=== PATIENT | male | born 1965 | race Caucasian/White ===

== ENCOUNTER 2019-09-21 09:20 | Day surgery (SDC) | payer BC ==
[2019-09-20 18:00] VITALS: BMI 32.3
--- NOTE | 2019-09-21 11:09 | HP ---
Admitting History and Physical - Admission Chief Complaint: Low back and right Leg pain History of Present Illness: Pt complains of low back and Leg Pain. History Source: Patient - Smoking History Smoking history: Current every day smoker Have you smoked in the past 12 months: Yes Aproximately how many cigarettes per day: 15 - Alcohol/Substance Use Hx Alcohol Use: Yes (rarely) Home Medications - Allergies Allergies/Adverse Reactions: Allergies Allergy/AdvReac Type Severity Reaction Status Date / Time No Known Allergies Allergy Verified 09/20/19 18:00 - Home Medications Home Medications: Ambulatory Orders Aspirin Coated [Ecotrin -] 81 mg PO DAILY 12/12/18 Losartan Potassium 100 mg PO DAILY 12/12/18 Rosuvastatin Calcium 5 mg PO DAILY 12/12/18 Physical Examination Vital Signs: Vital Signs Temperature 98.4 F 09/21/19 09:30 Pulse Rate 78 09/21/19 09:30 Respiratory Rate 12 09/21/19 09:30 Blood Pressure 156/94 09/21/19 09:30 O2 Sat by Pulse Oximetry (%) 98 09/21/19 09:30 Constitutional: Yes: Well Nourished, No Distress, Calm Eyes: Yes: Conjunctiva Clear HENT: Yes: Atraumatic, Normocephalic Neck: Yes: Trachea Midline Cardiovascular: Yes: Regular Rate and Rhythm Respiratory: Yes: Regular Neurological: Yes: Other (SLR Positive right) Assessment/Plan The patients low back and leg pain is likely secondary to right L3-L4 radiculopathy. 1. I will perform right L3 and L4 TFESI. 2. Follow up in 2 weeks.
[2019-09-21] MEDS ORDERED: LIDOCAINE HCL 1%, 10 MG/ML (20ML VIAL) ONE (12:26)
[2019-09-21] MEDS ORDERED: LIDOCAINE HCL 1%, 10 MG/ML (20ML VIAL) NR ONE (12:32)
[2019-09-21] MEDS ORDERED: IOHEXOL 180 MG/1 ML ML IJ ONE (12:33)
[2019-09-21] MEDS ORDERED: LIDOCAINE HCL 1% PRESERVATIVE FREE - 30ML VIAL IJ ONE (12:34)
[2019-09-21] MEDS ORDERED: DEXAMETHASONE SOD PHOSPHATE 10 MG/1 ML VIAL IVPUSH ONE (12:35)
[2019-09-21 14:08] VITALS: BP 150/87; PULSE 62; TEMP 98.5
--- NOTE | 2019-09-22 17:16 | PROC ---
Procedure Note Procedure: Date: 09/21/2019 : 1965 Age: 53 Year(s) Sex: Male Name of the patient: Faisal Schuster Preoperative Diagnosis: Low Back pain and Lumbar radiculopathy Postoperative Diagnosis: Same Procedure Performed: Lumbar Epidural steroid injection Transforaminal L4 and L5 on Right Anesthesia: Local Procedure: 5 After the risks and benefits were explained, informed consent was obtained. The patient was then taken to the procedure room and positioned prone on the procedure table. Time out was performed. The region overlying the Right L3 and L4 neural foramens were identified using fluoroscopy. The skin was prepped and draped in the usual sterile fashion. The skin and soft tissues were anesthetized using 1% lidocaine. The neural foramens were identified with the fluoroscopic beam directed in a right oblique direction. 2 22 gauge 3.5 inch spinal needles were then introduced into the appropriate neural foramens using intermittent fluoroscopic guidance using AP, oblique and lateral views as indicated. Needle placement was then confirmed with the injection of Omnipaque 180. Epidural flow was noted and the nerve root was outlined. No vascular uptake was noted. Next, a mixture 1.5 cc of dexamethasone and 1% lidociane followed by 0.5 cc of 1% lidocaine was then injected around the Right L3 and L4 spinal nerves. The patient tolerated the procedure well and there were no complications. The patient was taken to the post procedure recovery area in good condition. Vital signs remained stable before, during, and after the procedure. The patient was given oral and written follow-up instructions. The patient was given a follow up appointment with me in the near future. Serafin Coker DO ^
== END 2019-09-21 13:00 | disposition home or self-care (01) ==
LOC: JASU-SURG 09:20
PROVIDERS: ATTEND Pain Medicine Pain Medicine
PROC: 3E0R3BZ Introduction of Anesthetic Agent into Spinal Canal, Percutaneous Approach (ICD-10-PCS; 2019-09-21)
PROC: B01BYZZ Fluoroscopy of Spinal Cord using Other Contrast (ICD-10-PCS; 2019-09-21)
PROC: 3E0R33Z Introduction of Anti-inflammatory into Spinal Canal, Percutaneous Approach (ICD-10-PCS; principal; 2019-09-21 11:30)
DX: M54.16 Radiculopathy, lumbar region (principal); M54.5 Low back pain
CPT/HCPCS: 76000-TC-FY; J1100

== ENCOUNTER 2022-08-04 04:35 | Day surgery (SDC) | payer BC ==
[2022-08-03 10:02] VITALS: BMI 28.7
[2022-08-04 09:37] VITALS: TEMP 97.1
[2022-08-04 10:30] VITALS: BP 110/56; PULSE 61; RESP 20
== END 2022-08-04 10:30 | disposition home or self-care (01) ==
LOC: JASU-ENDO 04:35
PROVIDERS: ATTEND Internal Medicine Gastroenterology
PROC: 0DBP8ZX Excision of Rectum, Via Natural or Artificial Opening Endoscopic, Diagnostic (ICD-10-PCS; 2022-08-04)
PROC: 0DBN7ZX Excision of Sigmoid Colon, Via Natural or Artificial Opening, Diagnostic (ICD-10-PCS; 2022-08-04)
PROC: 0DBM8ZX Excision of Descending Colon, Via Natural or Artificial Opening Endoscopic, Diagnostic (ICD-10-PCS; principal; 2022-08-04 09:00)
DX: Z12.11 Encounter for screening for malignant neoplasm of colon (principal); D12.8 Benign neoplasm of rectum; K63.5 Polyp of colon; Z86.010 Personal history of colon polyps; K64.8 Other hemorrhoids; I10 Essential (primary) hypertension
CPT/HCPCS: 88305-TC

== ENCOUNTER 2023-03-25 04:17 | Day surgery (SDC) | payer BC ==
[2023-03-22 09:42] VITALS: BMI 28.3
[~2023-03-25 04:17] MED LIST: DEXAMETHASONE SOD PHOSPHATE 10 MG/1 ML VIAL IM ONE; IOHEXOL 180 MG/1 ML ML IJ ONE; LIDOCAINE HCL 1% PRESERVATIVE FREE - 30ML VIAL IJ ONE
[2023-03-25] MEDS ORDERED: ACETAMINOPHEN 500 MG TABLET (FP) PO PRN (09:38)
[2023-03-25] MEDS ORDERED: IOHEXOL 180 MG/1 ML ML IJ ONE (15:12)
[2023-03-25] MEDS ORDERED: LIDOCAINE HCL 1% PRESERVATIVE FREE - 30ML VIAL IJ ONE (15:12)
[2023-03-25] MEDS ORDERED: DEXAMETHASONE SOD PHOSPHATE 10 MG/1 ML VIAL ONE (15:12)
[2023-03-25] MEDS ORDERED: DEXAMETHASONE SOD PHOSPHATE 10 MG/1 ML VIAL IM ONE (15:12)
[2023-03-25 17:59] VITALS: RESP 16; TEMP 97.9
[2023-03-25 18:02] VITALS: BP 120/60; PULSE 56
== END 2023-03-25 15:45 | disposition home or self-care (01) ==
LOC: JASU-SURG 04:17
PROVIDERS: ATTEND Pain Medicine Pain Medicine
PROC: 3E0R3BZ Introduction of Anesthetic Agent into Spinal Canal, Percutaneous Approach (ICD-10-PCS; 2023-03-25)
PROC: 3E0R33Z Introduction of Anti-inflammatory into Spinal Canal, Percutaneous Approach (ICD-10-PCS; principal; 2023-03-25 16:00)
DX: M54.16 Radiculopathy, lumbar region (principal)
CPT/HCPCS: 76000-TC-FY; J1100

== ENCOUNTER 2024-03-13 04:21 | Day surgery (SDC) | payer BC ==
[2024-03-07 09:07] VITALS: BMI 29.3
[2024-03-13 11:39] VITALS: TEMP 97.8
[2024-03-13 12:05] VITALS: BP 128/85; PULSE 51; RESP 17
== END 2024-03-13 11:59 | disposition home or self-care (01) ==
LOC: JASU-ENDO 04:21
PROVIDERS: ATTEND Internal Medicine Gastroenterology
PROC: 0DB78ZX Excision of Stomach, Pylorus, Via Natural or Artificial Opening Endoscopic, Diagnostic (ICD-10-PCS; 2024-03-13)
PROC: 0DB68ZX Excision of Stomach, Via Natural or Artificial Opening Endoscopic, Diagnostic (ICD-10-PCS; 2024-03-13)
PROC: 0DB98ZX Excision of Duodenum, Via Natural or Artificial Opening Endoscopic, Diagnostic (ICD-10-PCS; principal; 2024-03-13 10:30)
DX: K21.9 Gastro-esophageal reflux disease without esophagitis (principal); K44.9 Diaphragmatic hernia without obstruction or gangrene; K29.50 Unspecified chronic gastritis without bleeding
CPT/HCPCS: 88305-TC; 88342-TC